=== PATIENT | female | born 1995 | race Caucasian/White ===

== ENCOUNTER 2020-11-03 09:28 | Emergency (ER) | payer OTHER ==
[~2020-11-03] VITALS: Ht 157.5 cm; Wt 52.3 kg
[2020-11-03 09:41] VITALS: BP 111/68
== END 2020-11-03 11:52 ==
LOC: EMS 09:31
DX: Z11.1 Encounter for screening for respiratory tuberculosis (principal)
CPT/HCPCS: 71045; 99283